=== PATIENT | female | born 1995 | race Two or more races ===

== ENCOUNTER 2023-03-23 01:42 | Emergency (ER) | payer OTHER ==
[~2023-03-23] VITALS: Ht 160 cm; Wt 83.9 kg
[2023-03-23] MEDS ORDERED: TEARS LUBRICANT15 ML OP (04:00)
[2023-03-23] MEDS ORDERED: ALLERGY EYE DRO15 ML OPHT ×2 (04:01)
== END 2023-03-23 04:12 ==
LOC: ER 01:42
DX: H10.89 Other conjunctivitis (principal); Z88.0 Allergy status to penicillin